=== PATIENT | male | born 1985 | race Caucasian/White ===

== ENCOUNTER 2016-06-23 21:15 | Emergency (ER) | payer OTHER ==
[2016-06-23] MEDS ORDERED: CLINDAMYCIN 150 MG CAPSULE PO STA (21:28)
[2016-06-23] MEDS ORDERED: oxyCOD/ACETAMIN 5 MG/325 MG TABLET PO STA (21:28)
[2016-06-23] MEDS ORDERED: CLINDAMYCIN 150 MG CAPSULE PO ONE (21:32)
[2016-06-23] MEDS ORDERED: oxyCOD/ACETAMIN 5 MG/325 MG TABLET PO ONE (21:32)
== END 2016-06-23 21:54 | disposition home or self-care (01) ==
DX: K04.7 Periapical abscess without sinus (principal); K02.9 Dental caries, unspecified; R03.0 Elevated blood-pressure reading, without diagnosis of hypertension; F17.200 Nicotine dependence, unspecified, uncomplicated
CPT/HCPCS: 99283; A9270

== ENCOUNTER 2017-03-26 11:14 | Emergency (ER) | payer SELFPAY ==
[2017-03-26 11:21] VITALS: BP 120/70
[2017-03-26] MEDS ORDERED: cefTRIAXone 1 GM in SODIUM CHLORIDE 0.9% MINIBAG 100 ML IV STA (14:22)
[2017-03-26] MEDS ORDERED: cefTRIAXone 1 GM VIAL IM STA (14:46)
[2017-03-26] MEDS ORDERED: LIDOCAINE 1% 2 ML VIAL ONE (14:59)
[2017-03-26 15:12] LABS: BASOPHILS # (AUTO) 0.1 10^3/uL (0.0-0.1); BASOPHILS % (AUTO) 0.8 %; EOSINOPHILS # (AUTO) 0.1 10^3/uL (0.0-0.7); EOSINOPHILS % (AUTO) 0.9 %; HCT - HEMATOCRIT 40.8 % (42.0-52.0); HGB - HEMOGLOBIN 13.7 g/dL (14.0-18.0); LYMPHOCYTES # (AUTO) 1.2 10^3/uL (1.5-3.5); LYMPHOCYTES % (AUTO) 9.9 %; MEAN CORPUSCULAR HEMOGLOBIN 28.7 pg (27.0-31.0); MEAN CORPUSCULAR HGB CONC 33.6 g/dL (32.0-36.0); MEAN CORPUSCULAR VOLUME 85.4 fL (80.0-94.0); MEAN PLATELET VOLUME 8.3 fL (7.4-11.4); MONOCYTES # (AUTO) 1.3 10^3/uL (0.0-1.0); MONOCYTES % (AUTO) 10.3 %; NEUTROPHILS # (AUTO) 9.9 10^3/uL (1.5-6.6); NEUTROPHILS % (AUTO) 78.1 %; RED BLOOD COUNT 4.78 10^6/uL (4.70-6.10); RED CELL DISTRIBUTION WIDTH 13.5 % (12.0-15.0); UNCORRECTED WHITE BLOOD COUNT 12.6 x10^3/uL; WHITE BLOOD COUNT 12.6 x10^3/uL (4.8-10.8)
[2017-03-26 15:26] LABS: ALBUMIN/GLOBULIN RATIO 0.9 (1.0-2.2); BILIRUBIN,TOTAL 0.4 mg/dL (0.2-1.0); CREATININE 0.8 mg/dL (0.6-1.2); POTASSIUM 4.1 mmol/L (3.5-5.0); TOTAL PROTEIN 7.9 g/dL (6.7-8.2)
--- NOTE | 2017-03-26 15:35 | ED Physician Documentation ---
History of Present Illness - Stated complaint Stated Complaint: R FACE SWELLING - Chief complaint Chief Complaint: General - History obtained from History obtained from: Patient - History of Present Illness Timing: How many days ago (4) - Additonal information Additional information: 32-year-old male noticed some swelling and tenderness in his right neck about 3 or 4 days ago that he thought was an ingrown hair. The redness increased swelling increased as did the pain. He is come in now with swelling to the right side of his neck with increased pain and redness. Review of Systems Constitutional: reports: Myalgias, Fatigue. denies: Fever Eyes: denies: Decreased vision Ears: denies: Ear pain Nose: denies: Congestion Throat: denies: Sore throat Cardiac: denies: Chest pain / pressure Respiratory: denies: Dyspnea, Cough GI: denies: Abdominal Pain, Nausea, Vomiting : denies: Dysuria, Frequency Skin: reports: Other (Red swollen tender area) Musculoskeletal: reports: Neck pain Neurologic: denies: Generalized weakness, Focal weakness, Numbness PD PAST MEDICAL HISTORY - Past Medical History Past Medical History: Yes Cardiovascular: None Respiratory: None Neuro: None Endocrine/Autoimmune: None Psych: Depression, Anxiety - Past Surgical History Past Surgical History: Yes Ortho: Other - Present Medications Home Medications: Ambulatory Orders Medication Instructions Recorded Confirmed Amox/Clav 875/125 [Augmentin] 1 each PO Q12H #14 tablet 03/26/17 Sulfamethoxazole/Trimethoprim 1 each PO BID #14 tablet 03/26/17 [Sulfamethoxazole-Tmp Ds Tablet] - Allergies Allergies/Adverse Reactions: Allergies Allergy/AdvReac Type Severity Reaction Status Date / Time acetaminophen [From Vicodin] Allergy Itching Verified 03/26/17 11:21 hydrocodone bitartrate * Allergy Itching Verified 03/26/17 11:21 [From Vicodin] - Social History Does the pt smoke?: Yes Smoking Status: Current every day smoker Does the pt drink ETOH?: No Does the pt have substance abuse?: No - Immunizations Immunizations are current?: Yes - POLST Patient has POLST: No PD ED PE NORMAL - Vitals Vital signs reviewed: Yes (Normal) - General General: Alert and oriented X 3, No acute distress, Well developed/nourished, Other - HEENT HEENT: Atraumatic (Patient is pale appearing and speaks softly.), PERRL, EOMI, Ears normal, Moist mucous membranes, Pharynx benign, Dentition benign - Neck Neck: Supple, no meningeal sign, No bony TTP, Other (There is an area on the right side of the neck at the angle of the jaw approximately 4 cm x 2 cm that is erythematous firm and tender. There is no fluctuance to the area.) - Cardiac Cardiac: RRR, No murmur - Respiratory Respiratory: No respiratory distress, Clear bilaterally - Abdomen Abdomen: Soft, Non tender - Back Back: No CVA TTP, No spinal TTP - Derm Derm: Normal color, Warm and dry, No rash - Extremities Extremities: No deformity, No edema - Neuro Neuro: No motor deficit, No sensory deficit Eye Opening: Spontaneous Motor: Obeys Commands Verbal: Oriented GCS Score: 15 - Psych Psych: Normal mood, Normal affect Results - Vitals Vitals: Vital Signs - 24 hr 03/26/17 11:18 Temperature 36.6 C Heart Rate 99 Respiratory 15 Rate Blood Pressure 120/70 O2 Saturation 100 Oxygen O2 Source Room air - Labs Labs: Laboratory Tests 03/26/17 03/26/17 15:03 15:03 WBC 12.6 H RBC 4.78 Hgb 13.7 L Hct 40.8 L MCV 85.4 MCH 28.7 MCHC 33.6 RDW 13.5 Plt Count 207 MPV 8.3 Neut # 9.9 H Lymph # 1.2 L Nicholas # 1.3 H Eos # 0.1 Baso # 0.1 Absolute Nucleated RBC 0.00 Nucleated RBC % 0.0 Sodium 136 Potassium 4.1 Chloride 100 L Carbon Dioxide 27 Anion Gap 9.0 BUN 11 Creatinine 0.8 Estimated GFR (MDRD) 113 Glucose 106 H Calcium 9.0 Total Bilirubin 0.4 AST 10 ALT 13 Alkaline Phosphatase 65 Total Protein 7.9 Albumin 3.8 Globulin 4.1 Albumin/Globulin Ratio 0.9 L Lipase 14 L - Rads (name of study) soft tissue neck u/s Radiology: Prelim report reviewed (Impression: 1. Subcutaneous edema. No drainable abscess. Right IJ and EJ are patent.), EMP read indepedently, See rad report Procedures - Bedside sono Bedside sono by EMP: With use of bedside ultrasound the right neck is imaged there does appear to be soft tissue swelling and striations of cellulitis. There is a question of patency of the veins and a formal ultrasound is ordered. PD MEDICAL DECISION MAKING - ED course Complexity details: reviewed old records, reviewed results, re-evaluated patient , considered differential, d/w patient ED course: 32-year-old male with infection in the soft tissues of the neck does not appear to have abscess or fluid collection formed at this point. He is presentation was concerning for vein thrombosis and formal ultrasound was able to elaborate that this was not happening. He is administered Rocephin 1 g IM and even before he leaves the emergency department he has some fading of the redness of the infected site. Departure - Departure Disposition: 01 Home, Self Care Clinical Impression: Cellulitis and abscess of neck Condition: Stable Instructions: ED Infec Skin Cellulitis Follow-Up: [facility] [Provider Group] Prescriptions: Amox/Clav 875/125 [Augmentin] 1 each PO Q12H #14 tablet Sulfamethoxazole/Trimethoprim [Sulfamethoxazole-Tmp Ds Tablet] 1 each PO BID # 14 tablet
--- NOTE | 2017-03-31 11:51 | Ultrasound Report ---
ULTRASOUND RIGHT NECK: 03/26/2017 CLINICAL INDICATION: Swelling, question thrombosis. TECHNIQUE: Real-time scanning was performed with [employer] static images obtained. Ultrasound of the region of swelling in the right neck was performed. Subcutaneous edema is seen diffusely. There is no evidence of thrombosis of the internal or external jugular veins. No drainable abscess collection is identified. IMPRESSION: Extensive edema. No evidence of a drainable abscess collection. No evident thrombosis of the right internal or external jugular veins. TD: 03/26/2017 17:26 MTDD
== END 2017-03-26 15:42 | disposition home or self-care (01) ==
LOC: ED 11:14
DX: L03.221 Cellulitis of neck (principal); L02.11 Cutaneous abscess of neck; F17.200 Nicotine dependence, unspecified, uncomplicated
CPT/HCPCS: 36415; 76536; 80053; 83690; 85025; 96372; 99283

== ENCOUNTER 2017-06-10 15:42 | Emergency (ER) | payer MEDICAID ==
[2017-06-10 15:54] VITALS: BP 142/83
--- NOTE | 2017-06-10 17:14 | ED Physician Documentation ---
PD HPI OPHTHO - Stated complaint Stated Complaint: L EYE REDNESS - Chief complaint Chief Complaint: Heent - History obtained from History obtained from: Patient - History of Present Illness Timing - onset: Yesterday Timing - details: Abrupt onset (he got something in eye and felt it hurt when rubbed eye. Had some redness. Today awoke with crusting and redness that has persisted.) Location: Left Quality / character: Sharp Associated symptoms: Redness, Discharge, FB sensation Contributing factors: FB, Work related. No: Wears contacts Similar symptoms before: Has not had sx before Recently seen: Not recently seen Review of Systems Constitutional: denies: Fever, Chills Eyes: denies: Loss of vision, Decreased vision, Photophobia Ears: denies: Ear pain Nose: denies: Rhinorrhea / runny nose, Congestion Throat: denies: Sore throat Cardiac: denies: Chest pain / pressure, Palpitations Respiratory: denies: Dyspnea, Cough GI: denies: Nausea Skin: denies: Rash PD PAST MEDICAL HISTORY - Past Medical History Cardiovascular: None Respiratory: None Neuro: None Endocrine/Autoimmune: None Psych: Depression, Anxiety - Past Surgical History Past Surgical History: Yes Ortho: Other - Present Medications Home Medications: Ambulatory Orders Medication Instructions Recorded Confirmed Amox/Clav 875/125 [Augmentin] 1 each PO Q12H #14 tablet 03/26/17 Sulfamethoxazole/Trimethoprim 1 each PO BID #14 tablet 03/26/17 [Sulfamethoxazole-Tmp Ds Tablet] Sulfacetamide 10% Ophth Drops 2 drops OPTH Q3H #1 bottle 06/10/17 [Sulfamide 10% Ophth Drops] - Allergies Allergies/Adverse Reactions: Allergies Allergy/AdvReac Type Severity Reaction Status Date / Time acetaminophen [From Vicodin] Allergy Itching Verified 03/26/17 11:21 hydrocodone bitartrate * Allergy Itching Verified 03/26/17 11:21 [From Vicodin] - Social History Does the pt smoke?: Yes Smoking Status: Current every day smoker Does the pt drink ETOH?: No Does the pt have substance abuse?: No - Immunizations Immunizations are current?: Yes - POLST Patient has POLST: No PD ED PE NORMAL - Vitals Vital signs reviewed: Yes - General General: Alert and oriented X 3, No acute distress, Well developed/nourished PD ED PE EXPANDED - Eyes Eyes: PERRL, EOMI, Left eye, Injected conj/sclera, Corneal abrasion (linear superficial abrasion about 3 o-clock position. No ulcerations. Some discharge and modearate redness of eye generally. ), Fluorescein uptake Results - Vitals Vitals: Vital Signs - 24 hr 06/10/17 15:52 Temperature 36.7 C Heart Rate 111 H Respiratory 17 Rate Blood Pressure 142/83 H O2 Saturation 96 Oxygen O2 Source Room air PD MEDICAL DECISION MAKING - ED course Complexity details: considered differential (small linear abrasion superficial. Has redness and some crusting. ), d/w patient Departure - Departure Disposition: Home, Self Care Clinical Impression: Corneal abrasion Qualifiers: Encounter type: initial encounter Laterality: left Qualified Code(s): S05.02XA - Injury of conjunctiva and corneal abrasion without foreign body, left eye, initial encounter Conjunctivitis, acute Qualifiers: Acute conjunctivitis type: bacterial Laterality: left Qualified Code(s): H10.32 - Unspecified acute conjunctivitis, left eye Condition: Stable Record reviewed to determine appropriate education?: Yes Instructions: ED Conjunctivitis Nonspecific, ED Eye Injury Corneal Abrasion Prescriptions: Sulfacetamide 10% Ophth Drops [Sulfamide 10% Ophth Drops] 2 drops OPTH Q3H #1 bottle Comments: Cleanse the eye gently with moist face cloth and then apply the antibiotic eyedrops every 2-3 hours while awake for 2-3 days. You do have a small corneal abrasion and that should heal up okay within a day or 2. The redness and discharge should decrease in that timeframe as well. You can use the numbing eyedrops periodically if you are not doing any work and just resting. Be aware your lose your protective reflex of anything in your eye with those. Do not use them beyond a day or 2 without rechecking as your I should be better by that timeframe. Tylenol or ibuprofen if needed for pains. Discharge Date/Time: 06/10/17 17:42
== END 2017-06-10 17:42 | disposition home or self-care (01) ==
LOC: ED 15:42
DX: S05.02XA Injury of conjunctiva and corneal abrasion without foreign body, left eye, initial encounter (principal); W22.09XA Striking against other stationary object, initial encounter; H10.32 Unspecified acute conjunctivitis, left eye; F17.200 Nicotine dependence, unspecified, uncomplicated
CPT/HCPCS: 99281; 99283

== ENCOUNTER 2018-06-02 08:00 | Outpatient (CLI) | payer MEDICAID ==
[2018-06-02 17:45] LABS: BASOPHILS # (AUTO) 0.1 10^3/uL (0.0-0.1); BASOPHILS % (AUTO) 0.8 %; EOSINOPHILS # (AUTO) 0.3 10^3/uL (0.0-0.7); EOSINOPHILS % (AUTO) 4.5 %; HGB - HEMOGLOBIN 15.5 g/dL (14.0-18.0); LYMPHOCYTES # (AUTO) 1.8 10^3/uL (1.5-3.5); MEAN CORPUSCULAR HEMOGLOBIN 29.3 pg (27.0-31.0); MEAN CORPUSCULAR HGB CONC 32.4 g/dL (32.0-36.0); MEAN CORPUSCULAR VOLUME 90.5 fL (80.0-94.0); MEAN PLATELET VOLUME 8.6 fL (7.4-11.4); MONOCYTES # (AUTO) 0.5 10^3/uL (0.0-1.0); MONOCYTES % (AUTO) 8.3 %; NEUTROPHILS # (AUTO) 3.7 10^3/uL (1.5-6.6); NEUTROPHILS % (AUTO) 58.4 %; PLT - PLATELET COUNT 184 10^3/uL (130-450); RED BLOOD COUNT 5.28 10^6/uL (4.70-6.10); RED CELL DISTRIBUTION WIDTH 13.8 % (12.0-15.0); WHITE BLOOD COUNT 6.3 x10^3/uL (4.8-10.8)
[2018-06-02 19:03] LABS: ALBUMIN 4.2 g/dL (3.2-5.5); ALBUMIN/GLOBULIN RATIO 1.2 (1.0-2.2); BILIRUBIN,TOTAL 0.5 mg/dL (0.2-1.0); CALCIUM 9.4 mg/dL (8.5-10.3); CREATININE 0.8 mg/dL (0.6-1.2); TOTAL PROTEIN 7.6 g/dL (6.7-8.2)
[2018-06-03 13:02] LABS: HEPATITIS B SURFACE ANTIGEN NON-REACTIVE (NON-REACTIVE)
== END 2018-06-02 23:59 | disposition home or self-care (01) ==
LOC: LAB 08:00
PROVIDERS: ATTEND Family Medicine
DX: Z13.818 Encounter for screening for other digestive system disorders (principal); Z11.59 Encounter for screening for other viral diseases; Z13.228 Encounter for screening for other metabolic disorders
CPT/HCPCS: 36415; 80053; 81599; 85025; 86705; 86706; 86709; 86803; 87340

== ENCOUNTER 2021-02-21 09:56 | Emergency (ER) | payer MEDICAID ==
[2021-02-21 10:08] VITALS: BP 133/82
[2021-02-21] MEDS ORDERED: SULFAMETH/TRIMETH DS 800/160 MG TABLET PO STA (10:18)
[2021-02-21] MEDS ORDERED: BUFFERED LIDOCAINE 10 ML SYRINGE SUBQ STA (10:18)
--- NOTE | 2021-02-21 10:19 | ED Physician Documentation ---
PD HPI WOUND RECHECK - Stated complaint Stated Complaint: RT ANKLE PX - Chief complaint Chief Complaint: Wound - Histroy obtained from History obtained from: Patient (35-year-old gentleman with history of IV drug use last used about a week ago injecting into his right ankle and now has an abscess there without fevers or chills. No history of MRSA.) Review of Systems Constitutional: reports: Reviewed and negative Eyes: reports: Reviewed and negative : reports: Reviewed and negative Skin: reports: Reviewed and negative PD PAST MEDICAL HISTORY - Past Medical History Cardiovascular: None Respiratory: None Endocrine/Autoimmune: None Psych: Depression, Anxiety - Past Surgical History Past Surgical History: Yes Ortho: Other - Present Medications Home Medications: Ambulatory Orders Medication Instructions Recorded Confirmed Amox/Clav 875/125 [Augmentin] 1 each PO Q12H #14 tablet 03/26/17 Sulfamethoxazole/Trimethoprim 1 each PO BID #14 tablet 03/26/17 [Sulfamethoxazole-Tmp Ds Tablet] Sulfacetamide 10% Ophth Drops 2 drops OPTH Q3H #1 bottle 06/10/17 [Sulfamide 10% Ophth Drops] Sulfamethox/Trimeth 800/160 1 each PO BID #14 tablet 02/21/21 [Bactrim Ds 800/160] - Allergies Allergies/Adverse Reactions: Allergies Allergy/AdvReac Type Severity Reaction Status Date / Time acetaminophen [From Vicodin] Allergy Itching Verified 02/21/21 10:08 hydrocodone bitartrate * Allergy Itching Verified 02/21/21 10:08 [From Vicodin] - Social History Does the pt smoke?: Yes Smoking Status: Current every day smoker Does the pt drink ETOH?: No Does the pt have substance abuse?: No - Immunizations Immunizations are current?: Yes - POLST Patient has POLST: No PD ED PE NORMAL - Vitals Vital signs reviewed: Yes - General General: Alert and oriented X 3, No acute distress - Derm Derm: Normal color, Warm and dry, Other (He has an area of cellulitis that is ab out palm sized to just above the medial right ankle. On bedside ultrasound there is a 1 cm or so fluid collection consistent with abscess.) - Neuro Neuro: Alert and oriented X 3, Normal speech Results - Vitals Vitals: Vital Signs - 24 hr 02/21/21 10:05 Temperature 36.1 C L Heart Rate 97 Respiratory 17 Rate Blood Pressure 133/82 H O2 Saturation 100 Oxygen O2 Source Room air Procedures - Abscess I&D (location) R ankle medial Preparation: Confirmed with ultrasound, Alcohol, Lidocaine 1% (buffered, ring block) Incision: Incised with scalpel, Purulent drainage, Loculations broken, Packed (with 1/4 inch packing), Culture obtained Other: Pt tolerated well, Dressing applied, Antibiotic prescribed Departure - Departure Disposition: 01 Home, Self Care Clinical Impression: Abscess of lower extremity Condition: Good Record reviewed to determine appropriate education?: Yes Instructions: ED Abscess IandD Prescriptions: Sulfamethox/Trimeth 800/160 [Bactrim Ds 800/160] 1 each PO BID #14 tablet Comments: Prescription sent electronically to [facility] in [place] We are performing a wound culture, the results should be done in 48-72 hours. If antibiotic change is necessary we will call you. Return if worse in the meantime, especially if you develop increased pain, fevers, cannot keep down the medication. Otherwise follow-up with your physician in approximately 2-3 days.
--- NOTE | 2021-02-23 13:36 | ED Physician Documentation ---
ED Addendum - Addendum Addendum: 02/23/21 13:36 He has MRSA which is resistant to Bactrim. No good oral options available with the exception of linezolid and I asked the charge nurse to call in a prescription for linezolid 600 mg p.o. twice daily to the pharmacy of the patient's choice for a 10-day course.
== END 2021-02-21 10:38 | disposition home or self-care (01) ==
LOC: ED 09:56
DX: L02.415 Cutaneous abscess of right lower limb (principal); B95.62 Methicillin resistant Staphylococcus aureus infection as the cause of diseases classified elsewhere; Z16.24 Resistance to multiple antibiotics; Z72.89 Other problems related to lifestyle
CPT/HCPCS: 10060; 87070; 87181; 87205; 99283; A9270

== ENCOUNTER 2021-03-10 23:15 | Emergency (ER) | payer MEDICAID ==
[2021-03-10 23:23] VITALS: BP 160/80
[2021-03-10] MEDS ORDERED: LINEZOLID 600 MG TABLET PO STA (23:35)
--- NOTE | 2021-03-10 23:37 | ED Physician Documentation ---
History of Present Illness - Stated complaint Stated Complaint: R LEG INFECTION - Chief complaint Chief Complaint: Ext Problem - History obtained from History obtained from: Patient - Additonal information Additional information: Patient comes emergency department chief complaint of "I think my right ankle is infected again". The patient was seen here couple of weeks ago for similar issue, but at that time, was found of a small abscess. This was incised and drained, and subsequent culture showed that the patient had multidrug resistant staph aureus that was sensitive only to linezolid as far as p.o. options. Patient states he took the entire course and finished several days ago and that the ankle seem to be doing better. However, over the last day or 2, he has noticed the redness slowly returning and states that it feels hot and inflamed again. He states he gets a tiny bit of pus out of it once a day, but otherwise, has not been draining much. Patient denies any measured fevers, though he has had some chills. No other symptoms or complaints at this time. Patient does have a history of IV drug abuse. Review of Systems Ten Systems: 10 systems reviewed and negative Constitutional: reports: Reviewed and negative Eyes: reports: Reviewed and negative Ears: reports: Reviewed and negative Nose: reports: Reviewed and negative Throat: reports: Reviewed and negative Cardiac: reports: Reviewed and negative Respiratory: reports: Reviewed and negative GI: reports: Reviewed and negative : reports: Reviewed and negative Skin: reports: Other (Redness) Musculoskeletal: reports: Reviewed and negative Neurologic: reports: Reviewed and negative Psychiatric: reports: Reviewed and negative Endocrine: reports: Reviewed and negative Immunocompromised: reports: Reviewed and negative PD PAST MEDICAL HISTORY - Past Medical History Cardiovascular: None Respiratory: None Endocrine/Autoimmune: None Psych: Depression, Anxiety - Past Surgical History Past Surgical History: Yes Ortho: Other - Present Medications Home Medications: Ambulatory Orders Medication Instructions Recorded Confirmed Amox/Clav 875/125 [Augmentin] 1 each PO Q12H #14 tablet 03/26/17 Sulfamethoxazole/Trimethoprim 1 each PO BID #14 tablet 03/26/17 [Sulfamethoxazole-Tmp Ds Tablet] Sulfacetamide 10% Ophth Drops 2 drops OPTH Q3H #1 bottle 06/10/17 [Sulfamide 10% Ophth Drops] Sulfamethox/Trimeth 800/160 1 each PO BID #14 tablet 02/21/21 [Bactrim Ds 800/160] Linezolid [Zyvox] 600 mg PO BID #20 tablet 03/10/21 - Allergies Allergies/Adverse Reactions: Allergies Allergy/AdvReac Type Severity Reaction Status Date / Time acetaminophen [From Vicodin] Allergy Itching Verified 03/10/21 23:17 hydrocodone bitartrate * Allergy Itching Verified 03/10/21 23:17 [From Vicodin] - Social History Does the pt smoke?: Yes Smoking Status: Current every day smoker Does the pt drink ETOH?: No Does the pt have substance abuse?: No - Immunizations Immunizations are current?: Yes - POLST Patient has POLST: No PD ED PE NORMAL - Vitals Vital signs reviewed: Yes - General General: Alert and oriented X 3 (Patient is coherent and cooperative. Does not appear under the influence of any mind altering substance at this time.), No acute distress, Well developed/nourished - HEENT HEENT: Atraumatic, PERRL, EOMI, Moist mucous membranes - Neck Neck: Supple, no meningeal sign - Respiratory Respiratory: No respiratory distress - Derm Derm: Warm and dry, Other (Moderately indurated skin and SQ tissue extending superiorly from the right medial malleolus 8 cm x 5 cm wide. No fluctuance. No drainage expressible from 5 mm wound superior to medial malleolus.) - Extremities Extremities: No deformity - Neuro Neuro: Alert and oriented X 3 - Psych Psych: Normal mood, Normal affect Results - Vitals Vitals: Vital Signs - 24 hr 03/10/21 23:18 Temperature 36.6 C Heart Rate 90 Respiratory 16 Rate Blood Pressure 160/80 H O2 Saturation 99 Oxygen O2 Source Room air PD MEDICAL DECISION MAKING - ED course Complexity details: considered differential, d/w patient ED course: I discussed with the patient that at this time, I do not find any evidence of recurrence of the abscess, but his cellulitis does appear to have recurred. The patient's records have been reviewed, and I will place him back on oral linezolid. I have informed the patient that the bacteria that he is infected with has been shown to be rather resistant to most oral agents, and it is very important that he complies with the antibiotics and exactly the manner they are prescribed. Departure - Departure Disposition: 01 Home, Self Care Clinical Impression: Cellulitis Qualifiers: Site of cellulitis: extremity Site of cellulitis of extremity: lower extremity Laterality: right Qualified Code(s): L03.115 - Cellulitis of right lower limb Condition: Stable Instructions: ED Infec Skin Cellulitis Prescriptions: Linezolid [Zyvox] 600 mg PO BID #20 tablet Comments: We have put you back on the antibiotics you are on before. Unfortunately, your infection is due to a rather resistant bacteria, and this is the only antibiotic that you can take orally that is expected to be effective. As such, it is very very important that you take all the antibiotics, exactly as prescribed, to help avoid getting this infection again. Please also get help with your drug use to avoid any future potential infections.
== END 2021-03-10 23:47 | disposition home or self-care (01) ==
LOC: ED 23:15
DX: L03.115 Cellulitis of right lower limb (principal); F17.200 Nicotine dependence, unspecified, uncomplicated
CPT/HCPCS: 99282; 99283; A9270

== ENCOUNTER 2021-05-11 12:28 | Emergency (ER) | payer MEDICAID ==
[2021-05-11 13:45] VITALS: BP 144/90
--- NOTE | 2021-05-11 14:13 | ED Physician Documentation ---
History of Present Illness - Stated complaint Stated Complaint: CHEST PX WHEN EATING - Chief complaint Chief Complaint: General - History obtained from History obtained from: Patient - History of Present Illness Timing: How many weeks ago Pain level max: 5 Pain level now: 1 - Additonal information Additional information: Patient is a 36-year-old male who complains of burning pain in his chest when he eats or drinks. He states occasionally will feel like food becomes stuck in his esophagus as well. Is been ongoing for the past several weeks. He states he has no difficulty swallowing liquids. Currently he is feeling better although he does have a slight burning sensation in his esophagus. No fevers. No chills. No chest pain. No shortness of breath. No nausea or vomiting. No diarrhea. Worse with eating and drinking, nothing makes it better. Review of Systems Constitutional: denies: Fever, Chills GI: denies: Vomiting, Diarrhea, Hematemesis, Bloody / black stool Skin: denies: Rash Musculoskeletal: denies: Neck pain, Back pain Neurologic: denies: Headache PD PAST MEDICAL HISTORY - Past Medical History Past Medical History: Yes Cardiovascular: None Respiratory: None Neuro: Headaches Endocrine/Autoimmune: None GI: GERD : None HEENT: None Psych: Depression, Anxiety Musculoskeletal: None Derm: None - Past Surgical History Past Surgical History: Yes Ortho: Other - Present Medications Home Medications: Ambulatory Orders Medication Instructions Recorded Confirmed Esomeprazole Magnesium [Nexium] 40 mg PO DAILY #30 cap.sr 05/11/21 Famotidine [Pepcid] 20 mg PO BID #60 tablet 05/11/21 Methadone [Methadone IntensoL] 160 mg PO DAILY 05/11/21 05/11/21 Sucralfate [Carafate] 1 gm PO ACHS #60 tablet 05/11/21 - Allergies Allergies/Adverse Reactions: Allergies Allergy/AdvReac Type Severity Reaction Status Date / Time acetaminophen [From Vicodin] Allergy Itching Verified 05/11/21 13:02 hydrocodone bitartrate * Allergy Itching Verified 05/11/21 13:02 [From Vicodin] - Social History Does the pt smoke?: Yes Smoking Status: Current every day smoker Does the pt drink ETOH?: No Does the pt have substance abuse?: Yes Substance Use and Type: Heroin - Immunizations Immunizations are current?: Yes - POLST Patient has POLST: No PD ED PE NORMAL - Vitals Vital signs reviewed: Yes - General General: Alert and oriented X 3, No acute distress - HEENT HEENT: Moist mucous membranes - Neck Neck: Supple, no meningeal sign - Cardiac Cardiac: RRR, Strong equal pulses - Respiratory Respiratory: No respiratory distress, Clear bilaterally - Abdomen Abdomen: Soft, Non tender, Non distended - Back Back: No CVA TTP - Derm Derm: Warm and dry - Extremities Extremities: No edema - Neuro Neuro: Alert and oriented X 3 - Psych Psych: Normal mood, Normal affect Results - Vitals Vitals: Vital Signs - 24 hr 05/11/21 05/11/21 12:56 13:44 Temperature 36.1 C L 36.8 C Heart Rate 98 83 Respiratory 18 15 Rate Blood Pressure 138/86 H 144/90 H O2 Saturation 98 99 Oxygen O2 Source Room air - EKG (time done) 1306 Rate: Rate (enter#) (86) Rhythm: NSR [place]: Normal Intervals: Normal [place] QRS: Normal Ischemia: Normal ST segments PD MEDICAL DECISION MAKING - ED course Complexity details: considered differential (No ST elevation [place], no aortic dissection, no PE, no tension pneumothorax, no aortic aneurysm), d/w patient ED course: Normal EKG. Symptoms are consistent with gastritis versus GERD. Could also have esophageal spasms. Potential esophageal rings. Recommend endoscopy. We will start on a PPI for home and have him follow-up with his doctor and surgery. Patient counseled regarding signs and symptoms for which I believe and urgent re-evaluation would be necessary. Patient with good understanding of and agreement to plan and is comfortable going home at this time This document was made in part using voice recognition software. While efforts are made to proofread this document, sound alike and grammatical errors may occur. Departure - Departure Disposition: Home, Self Care Clinical Impression: Esophagitis Condition: Good Instructions: ED GERD Follow-Up: Yelitza Nair MD [Provider Admit Priv/Credential] - Yanick Cruz MD [Provider Admit Priv/Credential] - Within 1 week Prescriptions: Sucralfate [Carafate] 1 gm PO ACHS #60 tablet Esomeprazole Magnesium [Nexium] 40 mg PO DAILY #30 cap.sr Famotidine [Pepcid] 20 mg PO BID #60 tablet Comments: Your prescriptions were sent to [facility] in [place]. Please follow-up with your doctor for further care. I have given you a list of surgeons to call to discuss an endoscopy. Make sure to chew your food well. Return for worsening pain or vomiting. Discharge Date/Time: 05/11/21 14:20
[2021-05-11] MEDS: MAG HYDROX/AL HYDROX/SIMETH 30 ML UDC PO STA (14:19)
[2021-05-11] MEDS: SUCRALFATE 1 GM/10 ML UDC PO STA (14:19)
== END 2021-05-11 14:20 | disposition home or self-care (01) ==
LOC: ED 12:28
DX: K20.90 Esophagitis, unspecified without bleeding (principal); R07.89 Other chest pain; F17.200 Nicotine dependence, unspecified, uncomplicated
CPT/HCPCS: 93005; 99283; A9270

== ENCOUNTER 2021-06-28 05:19 | Emergency (ER) | payer MEDICAID ==
[2021-06-28] MEDS ORDERED: lidocaine 1% 20 ML MDV SUBQ ONE (07:01)
--- NOTE | 2021-06-28 07:03 | ED Physician Documentation ---
PD HPI UPPER EXT INJURY - Stated complaint Stated Complaint: L HAND INJ - Chief complaint Chief Complaint: Laceration - History obtained from History obtained from: Patient (36-year-old right-handed gentleman accidentally cut his left index finger while chopping wood just prior to arrival. He is up-to-date on tetanus.) Review of Systems Constitutional: reports: Reviewed and negative Eyes: reports: Reviewed and negative PD PAST MEDICAL HISTORY - Past Medical History Past Medical History: Yes Cardiovascular: None Respiratory: None Neuro: Headaches Endocrine/Autoimmune: None GI: GERD : None HEENT: None Psych: Depression, Anxiety Musculoskeletal: None Derm: None Other Past Medical History: Heroin addiction - Past Surgical History Past Surgical History: Yes Ortho: Other - Present Medications Home Medications: Ambulatory Orders Medication Instructions Recorded Confirmed Esomeprazole Magnesium [Nexium] 40 mg PO DAILY #30 cap.sr 05/11/21 06/28/21 Famotidine [Pepcid] 20 mg PO BID #60 tablet 05/11/21 06/28/21 Methadone [Methadone IntensoL] 160 mg PO DAILY 05/11/21 06/28/21 Sucralfate [Carafate] 1 gm PO ACHS #60 tablet 05/11/21 06/28/21 - Allergies Allergies/Adverse Reactions: Allergies Allergy/AdvReac Type Severity Reaction Status Date / Time acetaminophen [From Vicodin] Allergy Itching Verified 06/28/21 05:35 hydrocodone bitartrate * Allergy Itching Verified 06/28/21 05:35 [From Vicodin] - Social History Does the pt smoke?: Yes Smoking Status: Current every day smoker Does the pt drink ETOH?: No Does the pt have substance abuse?: Yes - Immunizations Immunizations are current?: Yes - POLST Patient has POLST: No PD ED PE NORMAL - Vitals Vital signs reviewed: Yes - General General: Alert and oriented X 3, No acute distress - HEENT HEENT: PERRL, EOMI - Extremities Extremities: Other (On the radial side of the left index finger over the mid phalanx there is a curved 3 cm laceration going into subcutaneous fat. There is no distal neurovascular compromise. Will evaluate tendon status after anesthetic.) - Neuro Neuro: Alert and oriented X 3, Normal speech - Psych Psych: Normal mood, Normal affect Results - Vitals Vitals: Vital Signs - 24 hr 06/28/21 05:25 Temperature 36.2 C L Heart Rate 99 Respiratory 18 Rate Blood Pressure 139/93 H O2 Saturation 98 Oxygen O2 Source Room air Procedures - Laceration (location) L 2nd finger Length in cm: 3 Wound type: Curved, Into subcut fat Neurovascular status: Sensory intact, Motor intact, Vascular intact Tendon involvement: Tendon intact Anesthesia: Lidocaine 1% Wound preparation: Irrigated copiously NS Skin layer closure: Nylon, Interrupted, Size #-0 - enter number (4-0), Sutures - enter # (10) Other: Tetanus UTD Departure - Departure Disposition: 01 Home, Self Care Clinical Impression: Laceration of left index finger Qualifiers: Encounter type: initial encounter Damage to nail status: without damage Foreign body presence: without foreign body Qualified Code(s): S61.211A - Laceration without foreign body of left index finger without damage to nail, initial encounter Condition: Good Record reviewed to determine appropriate education?: Yes Instructions: ED Laceration Hand Comments: Come back for any signs of infection which would include: Redness, swelling, drainage, increased pain, or fevers. You can wash it soap and water. Keep it covered and moist with bacitracin ointment which is available over the counter; avoid neosporin. Follow-up with your physician in About 14 days for suture removal.
[2021-06-28 07:42] VITALS: BP 130/80
[2021-06-28] MEDS ORDERED: BACITRACIN ZINC OINT 1 PACKET TOP STA (07:42)
== END 2021-06-28 07:40 | disposition home or self-care (01) ==
LOC: ED 05:19
DX: S61.211A Laceration without foreign body of left index finger without damage to nail, initial encounter (principal); W27.0XXA Contact with workbench tool, initial encounter; Y93.89 Activity, other specified; F17.200 Nicotine dependence, unspecified, uncomplicated
CPT/HCPCS: 12002; 99282

== ENCOUNTER 2021-07-21 18:02 | Emergency (ER) | payer MEDICAID ==
[2021-07-21 18:16] VITALS: BP 142/89
--- NOTE | 2021-07-21 18:42 | ED Physician Documentation ---
History of Present Illness - Stated complaint Stated Complaint: LT EAR PX - Chief complaint Chief Complaint: Heent - History obtained from History obtained from: Patient - History of Present Illness Timing: Today Pain level max: 3 Pain level now: 3 - Additonal information Additional information: 36-year-old male with left ear pain. Complains of pain and drainage from the ear. Nothing makes it better or worse. No fevers. No chills. Review of Systems Constitutional: denies: Fever, Chills Respiratory: denies: Cough GI: denies: Vomiting, Diarrhea Skin: denies: Rash Musculoskeletal: denies: Neck pain, Back pain PD PAST MEDICAL HISTORY - Past Medical History Past Medical History: Yes Cardiovascular: None Respiratory: None Neuro: Headaches Endocrine/Autoimmune: None GI: GERD : None HEENT: None Psych: Depression, Anxiety Musculoskeletal: None Derm: None - Past Surgical History Past Surgical History: Yes Ortho: Other - Present Medications Home Medications: Ambulatory Orders Medication Instructions Recorded Confirmed Methadone [Methadone IntensoL] 160 mg PO DAILY 05/11/21 07/21/21 Ciproflox/Dexameth Otic Drops 4 drops LEFTEAR BID #1 bottle 07/21/21 [Ciprodex] - Allergies Allergies/Adverse Reactions: Allergies Allergy/AdvReac Type Severity Reaction Status Date / Time acetaminophen [From Vicodin] Allergy Itching Verified 07/21/21 18:13 hydrocodone bitartrate * Allergy Itching Verified 07/21/21 18:13 [From Vicodin] - Social History Does the pt smoke?: Yes Smoking Status: Current every day smoker Does the pt drink ETOH?: No Does the pt have substance abuse?: Yes - Immunizations Immunizations are current?: Yes - POLST Patient has POLST: No PD ED PE NORMAL - Vitals Vital signs reviewed: Yes - General General: Alert and oriented X 3, No acute distress - HEENT HEENT: Moist mucous membranes, Other (Right ear is normal. Left ear canal is erythematous, swollen with white drainage. TM is intact. Normal pinnae.) - Neck Neck: Supple, no meningeal sign - Derm Derm: Warm and dry - Neuro Neuro: Alert and oriented X 3 - Psych Psych: Normal mood, Normal affect Results - Vitals Vitals: Vital Signs - 24 hr 07/21/21 18:14 Temperature 36.5 C Heart Rate 100 Respiratory 18 Rate Blood Pressure 142/89 H O2 Saturation 100 Oxygen O2 Source Room air PD MEDICAL DECISION MAKING - ED course Complexity details: considered differential, d/w patient ED course: Patient with a left acute otitis externa. Will place on Ciprodex otic and have him follow-up with his doctor to ensure resolution. Patient counseled regarding signs and symptoms for which I believe and urgent re-evaluation would be necessary. Patient with good understanding of and agreement to plan and is comfortable going home at this time This document was made in part using voice recognition software. While efforts are made to proofread this document, sound alike and grammatical errors may occur. Departure - Departure Disposition: Home, Self Care Clinical Impression: Otitis externa Qualifiers: Otitis externa type: unspecified type Chronicity: acute Laterality: left Qualified Code(s): H60.502 - Unspecified acute noninfective otitis externa, left ear Condition: Good Instructions: ED Otitis Externa Follow-Up: your,doctor in 1 week [Other] Prescriptions: Ciproflox/Dexameth Otic Drops [Ciprodex] 4 drops LEFTEAR BID #1 bottle Comments: Your prescriptions were sent to [facility] in [place]. Please follow-up with your doctor for further care. Return if you worsen. This should improve over the next few days. Discharge Date/Time: 07/21/21 18:48
== END 2021-07-21 18:48 | disposition home or self-care (01) ==
LOC: ED 18:02
DX: H60.502 Unspecified acute noninfective otitis externa, left ear (principal); F17.200 Nicotine dependence, unspecified, uncomplicated
CPT/HCPCS: 99282